=== PATIENT | male | born 1965 | race Caucasian/White ===

== ENCOUNTER 2016-07-25 08:34 | Inpatient (IN) | payer OTHER ==
--- NOTE | 2016-07-12 14:45 | PAT Medication Instructions ---
Service Date Jul 12, 2016. Current Home Medication List Diclofenac (Voltaren), 75 MG PO BID Iyajxjukqrq-Ddukskxcczk-Lim C- (Glucosamine Chondroitin), 1 TAB PO BID Multivitamin (Multivitamin), 1 TAB PO QAM Medication Instructions For Your Scheduled Surgery - Check with surgeon for instructions: Diclofenac (Voltaren), 75 MG PO BID - Hold the following medications starting 07/12/16: Sewlyupmriw-Xtlbhcsxhpv-Bxk C- (Glucosamine Chondroitin), 1 TAB PO BID - Hold the following medications the morning of surgery: Multivitamin (Multivitamin), 1 TAB PO QAM If you have any questions please call us at [phone] (Sara Gtz PA-C) or [phone] or [phone]
--- NOTE | 2016-07-12 15:18 | DIAGNOSTIC IMAGING REPORT ---
CHEST 2 VIEWS ROUTINE CLINICAL HISTORY: Preoperative chest COMPARISON STUDY: No previous studies for comparison. FINDINGS: The cardiac and mediastinal contours are normal. There is no evidence of focal pulmonary consolidation. There is no evidence of failure. No pleural effusions are visualized.[ IMPRESSION: No active disease in the chest. Electronically signed by: Alessandro Anton M.D. 07/12/2016 3:16 PM
[2016-07-12 16:39] LABS: BASO % 0.2 %; BASO ABS # 0.02 K/uL (0-0.2); COMPLETE YES; HEMATOCRIT 45.7 % (42-52); IG% 0.5 %; LYMPH % 29.2 %; LYMPH ABS # 2.83 K/uL (1.2-3.4); MEAN CORPUSCULAR HEMOGLOBIN 33.5 pg (25-34); MEAN CORPUSCULAR HGB CONC 35.7 g/dl (32-36); NEUT % 59.1 %; PLATELET COUNT 239 K/uL (130-400); RED BLOOD COUNT 4.86 M/uL (4.7-6.1); WHITE BLOOD COUNT 9.69 K/uL (4.8-10.8)
[2016-07-12 16:40] LABS: URINE APPEARANCE CLEAR (CLEAR); URINE BILIRUBIN NEG (NEG); URINE COLOR YELLOW; URINE NITRITE NEG (NEG); URINE PH 5.5 (4.5-7.5); URINE SPECIFIC GRAVITY 1.023 (1.000-1.030); UROBILINOGEN NEG (NEG); ZZUR CULT IF INDIC CLEAN CATCH NO
[2016-07-12 16:45] LABS: MANUAL MICROSCOPIC REQUIRED? NO; REVIEW REQ? NO
[2016-07-12 16:51] LABS: PROTHROMBIN TIME (PATIENT) 10.4 SECONDS (9.0-12.0)
[2016-07-12 16:59] LABS: BUN/CREATININE RATIO 17.3 (10-20); CALCIUM 9.5 mg/dl (8.5-10.1); POTASSIUM 4.1 mmol/L (3.5-5.1)
[~2016-07-25] VITALS: Ht 172.7 cm; Wt 90.9 kg
[2016-07-25] VITALS (9 sets, daily range): BP systolic 107–133; BP diastolic 54–90; PULSE 84–108; TEMP 36.5–36.8; O2SAT 92–98; Ht 172.7 cm; Wt 90.9 kg
[~2016-07-25 08:34] MED LIST: ACETAMINOPHEN 500 MG TAB PO SCH; ATROPINE SULFATE 0.1 MG/ML 5ML SYR IV PRN; BUPIVACAINE 0.5 % 5 MG/1 ML PF 10ML VIAL ONE; CEFAZOLIN 2000 MG/60 ML D5W 60 ML IV SCH; CeleBREX 200 MG CAP PO SCH; DEXAMETHASONE 4 MG TAB PO SCH; DICL-201 PO; EpHEDrine SULFATE INJ 50 MG/ML AMP IV PRN; FAMOTIDINE 20 MG TAB PO SCH; FENTANYL CITRATE INJ 50 MCG/1 ML 2 ML VIAL IV PRN; GABAPENTIN 300 MG CAP PO SCH; GLUCTAB7 PO; LACTATED RINGER'S 1000ML IV SCH; LACTATED RINGER'S 500 ML IV SCH; METOCLOPRAMIDE HCL 10 MG TAB PO SCH; MULT-506 PO; ONDANSETRON INJ 2 MG/ML 2 ML VIAL IV PRN; OXYCODONE HCL 10 MG TABCR (OXYCONTIN) PO SCH; POLYMYXIN B SULFATE 100,000 UNITS in NSS 100ML IR SCH; ROPIVACAINE 5MG/ML 30 ML 150 MG, BUPIVACAINE/EPINEPHR 0.5% MPF 30 ML, KETOROLAC TROMETH... INFIL SCH; VANCOMYCIN INJ 400 MG in NSS 100ML IR SCH
[2016-07-25] MEDS ORDERED: MIDAZOLAM HCL 1 MG/ML 2ML VIAL ONE ×2 (09:46)
[2016-07-25] MEDS ORDERED: FENTANYL CITRATE INJ 50 MCG/1 ML 2 ML VIAL ONE (09:46)
--- NOTE | 2016-07-25 10:10 | History and Physical ---
History & Physical Date Jul 25, 2016. Chief Complaint R HIP PAIN History of Present Illness The patient is a 51 year old male with complaints of 2 YEAR HX OF R HIP PAIN. PAIN IS IN GROIN AGGRAVATING BY WALKING STANDING AND ADLS. PAIN 8/10 HAS TRIED INJECTIONS W SHORT TERM RELIEF.XRAY CW MODERATE TO ADVANCED OA OF HIP. Additional History Hepatic Disease: No Endocrine Disorder: No Kidney Disease: No Hypertension: No Heart Disease: No Bleeding Tendencies: No Infectious Diseases: No Allergies Coded Allergies: No Known Allergies (Unverified , 07/25/16) Home Medications Scheduled Diclofenac (Voltaren), 75 MG PO BID Tucpavcajcp-Kekrrcktjzy-Nxb C- (Glucosamine Chondroitin), 1 TAB PO BID Multivitamin (Multivitamin), 1 TAB PO QAM Physical Examination Skin: warm/dry, no rash Eyes: normal inspection, EOMI, sclerae normal ENT: normal ENT inspection, pharynx normal Head: normocephalic, atraumatic Neck: supple, no adenopathy, trachea midline Respiratory/Chest: lungs clear, normal breath sounds, no respiratory distress Cardiovascular: regular rate, rhythm, no edema, no murmur Abdomen / GI: normal bowel sounds, non tender Back: normal inspection, + pertinent finding (GROIN PAIN W ROM FLEX 80 IR 10 REPRODUCE PAIN LEG LENGTH EQUAL ) Extremities: normal inspection, normal range of motion Neurologic/Psych: no motor/sensory deficits, alert, normal reflexes, oriented x 3 Diagnosis DJD R HIP ASA Classification: ASA Class I Plan of Treatment R MARLIN
[2016-07-25] MEDS ORDERED: PROPOFOL IV EMULSION 10 MG/ML 20 ML VIAL IV ONE ×2 (10:13→12:13)
[2016-07-25] MEDS: TRANEXAMIC ACID INJ 1,000 MG in SODIUM CHLORIDE 0.9% 100ML 100 ML IV SCH ×2 (10:15→15:36)
[2016-07-25] MEDS ORDERED: ORTHO JOINT ANESTHETIC ONE (10:41)
[2016-07-25] MEDS ORDERED: PHENYLEPHRINE 100MCG/ML 5ML SYR ONE (12:13)
[2016-07-25] MEDS ORDERED: POVIDONE-IODINE OP SOLN 30 ML BTL TOP ONE (13:01)
[2016-07-25] MEDS ORDERED: BACITRACIN 50000 UNIT VIAL IR ONE (13:01)
--- NOTE | 2016-07-25 13:08 | [facility] Post Operative Brief Note ---
Immediate Operative Summary Operative Date Jul 25, 2016. Pre-Operative Diagnosis Degenerative joint disease right hip Post-Operative Diagnosis same as preop severe avn Procedure(s) Performed Total Hip Arthroplasty Direct Anterior Approach, Right, Uncemented Surgeon Dr. Santo Hallman Four Slide Operator Surgeon(s) ROSANA Parrish Estimated Blood Loss 125ML Findings severe avn hip Specimens A: Right femoral head Complication(s) None Disposition Recovery Room / PACU
[2016-07-25] MEDS ORDERED: METOCLOPRAMIDE HCL INJ 5 MG/ML 2 ML VIAL IV PRN (13:15)
[2016-07-25] MEDS ORDERED: ONDANSETRON INJ 2 MG/ML 2 ML VIAL IV PRN (13:15)
[2016-07-25] MEDS ORDERED: DiphenhydrAMINE HCL 50 MG/ML VIAL IV PRN (13:15)
[2016-07-25] MEDS ORDERED: ALUMINUM/MAGNESIUM/SIMETH (MAALOX MAX) 30 ML UDC PO PRN (13:15)
[2016-07-25] MEDS ORDERED: MAGNESIUM HYDROXIDE SUSP 30 ML UDC PO PRN (13:15)
[2016-07-25] MEDS ORDERED: BISACODYL 10 MG SUPP PR PRN (13:15)
[2016-07-25] MEDS ORDERED: MoRPHine SULFATE 2 MG/ML CARP IV PRN (13:15)
[2016-07-25] MEDS ORDERED: ZOLPIDEM TARTRATE 5 MG TAB PO PRN (13:15)
[2016-07-25] MEDS ORDERED: SOD PHOSPHATE/SOD BIPHOSPHATE ENEMA 132 ML BTL PR PRN (13:15)
[2016-07-25] MEDS ORDERED: TRAMADOL HCL 50 MG TAB PO PRN (13:15)
[2016-07-25] MEDS ORDERED: EpHEDrine SULFATE 50MG/5ML SYR ONE (13:16)
--- NOTE | 2016-07-25 13:23 | DIAGNOSTIC IMAGING REPORT ---
FLUOROSCOPIC INTRAOPERATIVE IMAGES OF THE RIGHT HIP CLINICAL HISTORY: Right hip arthroplasty. COMPARISON STUDY: No previous studies for comparison. FLUOROSCOPY TIME: 14.7 seconds. FINDINGS: 1 fluoroscopic image of the right hip was obtained and demonstrates anatomic alignment of the right hip arthroplasty. There is an acetabular screw. The distal aspect of the femoral stem was not imaged on this exam. IMPRESSION: Expected findings during right hip arthroplasty. Electronically signed by: Heri Gonzales M.D. 07/25/2016 1:21 PM
--- NOTE | 2016-07-25 14:18 | Anesthesiology Progress Note ---
Anesthesia Post Op Note Date & Time Jul 25, 2016 at 14:17 Vital Signs Pain Intensity: 6 Vital Signs Past 12 Hours Date Time Temp Pulse Resp B/P Pulse Ox O2 Delivery O2 Flow Rate FiO2 07/25/16 14:15 36.4 85 16 105/74 98 Nasal Cannula 2 07/25/16 14:05 36.4 85 16 100/76 98 Nasal Cannula 2 07/25/16 13:55 81 16 116/73 99 Nasal Cannula 2 07/25/16 13:45 78 16 111/73 98 Nasal Cannula 2 07/25/16 13:38 36.6 88 16 114/69 98 Nasal Cannula 2 07/25/16 09:09 97 Room Air Notes Mental Status: alert / awake / arousable, participated in evaluation Pt Amnestic to Procedure: Yes Nausea / Vomiting: adequately controlled Pain: adequately controlled Airway Patency, RR, SpO2: stable & adequate BP & HR: stable & adequate Hydration State: stable & adequate Neuraxial Anesthesia: was administered, sensory block is resolving Anesthetic Complications: no major complications apparent
--- NOTE | 2016-07-25 14:23 | DIAGNOSTIC IMAGING REPORT ---
RIGHT PELVIS/UNILATERAL HIP 1 VIEW CLINICAL HISTORY: Right hip arthritis. Arthroplasty. COMPARISON: Intraoperative fluoroscopic image performed earlier today. FINDINGS: Alignment of the total right hip arthroplasty is anatomic. There is an acetabular screw and surgical drain. There is no fracture or unexpected radiopaque foreign body. IMPRESSION: Expected findings following total right hip arthroplasty. Electronically signed by: Heri Gonzales M.D. 07/25/2016 2:21 PM
[2016-07-25] MEDS: KETOROLAC TROMETHAMINE 30 MG/ML VIAL IV. SCH ×2 (15:40→22:32)
[2016-07-25] MEDS: D5W AND 1/2NSS + 20MEQ KCL 1,000 ML IV SCH (15:40)
[2016-07-25] MEDS: ACETAMINOPHEN 500 MG TAB PO SCH ×2 (15:41→22:31)
[2016-07-25] MEDS: OXYCODONE HCL IR 5 MG TAB (IMMEDIATE RELEASE) PO PRN ×2 (17:48→23:56)
[2016-07-25] MEDS ORDERED: TRANEXAMIC ACID INJ 1,000 MG in SODIUM CHLORIDE 0.9% 100ML 100 ML IV ONE (20:00)
[2016-07-25] MEDS: CEFAZOLIN IV 2,000 MG in DEXTROSE 5% 50ML 50 ML IV SCH (20:28)
[2016-07-25] MEDS: ASPIRIN 81 MG ECTAB PO SCH (20:29)
[2016-07-25] MEDS ORDERED: SENNA 8.6 MG TAB PO SCH (21:00)
[2016-07-26] MEDS: D5W AND 1/2NSS + 20MEQ KCL 1,000 ML IV SCH ×2 (01:47→11:15)
[2016-07-26 03:16] VITALS: BP 112/68; PULSE 69; TEMP 36.6; O2SAT 96
[2016-07-26] MEDS: KETOROLAC TROMETHAMINE 30 MG/ML VIAL IV. SCH ×2 (03:55→09:26)
[2016-07-26] MEDS: CEFAZOLIN IV 2,000 MG in DEXTROSE 5% 50ML 50 ML IV SCH (03:59)
[2016-07-26] MEDS: ACETAMINOPHEN 500 MG TAB PO SCH (06:33)
[2016-07-26 06:57] LABS: BASO % 0.1 %; BASO ABS # 0.01 K/uL (0-0.2); COMPLETE YES; HEMATOCRIT 38.7 % (42-52); IG% 0.4 %; LYMPH % 6.5 %; LYMPH ABS # 0.83 K/uL (1.2-3.4); MEAN CORPUSCULAR HEMOGLOBIN 32.5 pg (25-34); MEAN CORPUSCULAR HGB CONC 34.9 g/dl (32-36); MEAN PLATELET VOLUME 10.4 fL (7.4-10.4); MONO % 6.6 %; NEUT % 86.4 %; PLATELET COUNT 219 K/uL (130-400); RED BLOOD COUNT 4.16 M/uL (4.7-6.1); WHITE BLOOD COUNT 12.85 K/uL (4.8-10.8)
[2016-07-26 07:30] VITALS: BP 125/80; PULSE 73; TEMP 36.6; O2SAT 98
[2016-07-26 07:32] LABS: CALCIUM 8.6 mg/dl (8.5-10.1); CREATININE 1.1 mg/dl (0.60-1.40); POTASSIUM 3.9 mmol/L (3.5-5.1)
--- NOTE | 2016-07-26 08:10 | Anesthesiology Progress Note ---
Anesthesia Post Op Note Date & Time Jul 26, 2016 at 08:09 Vital Signs Vital Signs Past 12 Hours Date Time Temp Pulse Resp B/P Pulse Ox O2 Delivery O2 Flow Rate FiO2 07/26/16 07:30 36.6 73 16 125/80 98 Room Air 07/26/16 03:16 36.6 69 18 112/68 96 Room Air 07/26/16 00:00 Room Air 07/25/16 23:28 36.6 89 20 111/68 95 Room Air 07/25/16 22:48 84 Notes Mental Status: alert / awake / arousable, participated in evaluation Pt Amnestic to Procedure: Yes Nausea / Vomiting: adequately controlled Pain: adequately controlled Airway Patency, RR, SpO2: stable & adequate BP & HR: stable & adequate Hydration State: stable & adequate Neuraxial Anesthesia: sensory block resolved Anesthetic Complications: no major complications apparent
--- NOTE | 2016-07-26 08:19 | Orthopedic Progress Note ---
Orthopedic Progress Note Date of Service Jul 26, 2016. Subjective Post OP Day: 1 Reports: feeling well, Denies: SOB, calf pain, chest pain, light headedness, nausea / vomiting Objective calves soft nontender, N/V intact, dressing C/D/I, A&O x3, toes mobile, hemovac drainage (55/25CC PER SHIFT) Date Time Temp Pulse Resp B/P Pulse Ox O2 Delivery O2 Flow Rate FiO2 07/26/16 07:30 36.6 73 16 125/80 98 Room Air 07/26/16 03:16 36.6 69 18 112/68 96 Room Air 07/26/16 00:00 Room Air 07/25/16 23:28 36.6 89 20 111/68 95 Room Air 07/25/16 22:48 84 07/25/16 19:45 36.6 108 18 133/90 92 Room Air 07/25/16 17:37 36.5 94 18 107/74 96 Nasal Cannula 2.0 07/25/16 16:40 36.8 92 17 111/74 96 Nasal Cannula 2.0 07/25/16 15:40 36.6 100 18 110/54 97 Nasal Cannula 2.0 07/25/16 15:11 36.6 100 18 120/86 97 Nasal Cannula 2.0 07/25/16 14:40 98 Nasal Cannula 2.0 07/25/16 14:40 36.8 87 16 114/75 98 Nasal Cannula 2.0 07/25/16 14:40 98 Nasal Cannula 2.0 07/25/16 14:25 85 16 110/81 98 Nasal Cannula 2 07/25/16 14:15 36.4 85 16 105/74 98 Nasal Cannula 2 07/25/16 14:05 36.4 85 16 100/76 98 Nasal Cannula 2 07/25/16 13:55 81 16 116/73 99 Nasal Cannula 2 07/25/16 13:45 78 16 111/73 98 Nasal Cannula 2 07/25/16 13:38 36.6 88 16 114/69 98 Nasal Cannula 2 07/25/16 09:09 97 Room Air Laboratory Results 24 Hours: Test 07/26/16 06:05 White Blood Count 12.85 K/uL Red Blood Count 4.16 M/uL Hemoglobin 13.5 g/dL Hematocrit 38.7 % Mean Corpuscular Volume 93.0 fL Mean Corpuscular Hemoglobin 32.5 pg Mean Corpuscular Hemoglobin Concent 34.9 g/dl Platelet Count 219 K/uL Mean Platelet Volume 10.4 fL Neutrophils (%) (Auto) 86.4 % Lymphocytes (%) (Auto) 6.5 % Monocytes (%) (Auto) 6.6 % Eosinophils (%) (Auto) 0.0 % Basophils (%) (Auto) 0.1 % Neutrophils # (Auto) 11.11 K/uL Lymphocytes # (Auto) 0.83 K/uL Monocytes # (Auto) 0.85 K/uL Eosinophils # (Auto) 0.00 K/uL Basophils # (Auto) 0.01 K/uL Assessment & Plan Assessment: POD#1 SP RIGHT MARLIN, DIRECT ANTERIOR Inhouse Planning Pain Management: Celebrex, PO Tylenol, Oxy IR DVT Prophylaxis: TEDs, SCDs, ASA Discharge Planning Discharge Planning: home with home health ([place] [facility].)
--- NOTE | 2016-07-26 08:20 | Discharge Instructions ---
Discharge Instructions Admission Reason for Admission: Right Hip Arthritis Discharge Discharge Diagnosis / Problem: SP RIGHT MARLIN Discharge Goals Goal(s): Decrease discomfort, Improve function, Increase independence Activity Recommendations Activity Limitations: per Instructions/Follow-up section Lifting Limitations: none . Instructions / Follow-Up Instructions / Follow-Up ACTIVITY RECOMMENDATIONS: SELF CARE INSTRUCTIONS AFTER TOTAL HIP REPLACEMENT : Direct Anterior Approach Until the incision and soft tissues around your hip have healed, there is a possibility that the hip prosthesis could dislocate. A. Hip flexion ( Up & Down out of chair or steps ) may be difficult. This is normal. B. Numbness in front of the thigh is also normal for a few weeks. C. Use hand rails when walking on stairs. D. Wear low heeled shoes with non-slip soles. E. Be sure that your floors are free of things that could trip you - throw rugs , electrical cords, small objects. Avoid wet and waxed floors, especially with crutches and canes. F. Try to walk several times a day with rest periods between. G. Continue with all the exercises taught to you in the hospital. Again, make walking a part of your daily routine. SPECIAL CARE INSTRUCTIONS: VERY IMPORTANT TO READ AND REVIEW A. You may still be at risk for phlebitis and blood clots. 1. Wear surgical stockings (PRAVIN hose) for 2 weeks after surgery to improve circulation and reduce swelling. 2. Take Aspirin 81mg twice daily for 4 weeks or as directed by your doctor. This is your blood thinner. 3. High risk patients may be prescribed a stronger blood thinner if necessary. 4. If you are on Coumadin normally, your family doctor/sample collector should monitor your blood work. Expect a phone call the day of or the day after bloodwork is drawn to adjust your dosage. B. You must take antibiotics before having dental work, bladder, bowel and other surgery. Your doctor will provide you with a permanent card to carry describing precautions. C. Call [facility] if you have a fever, redness or swelling around the incision, cloudy drainage from incision, or sudden increase in pain in your hip, not relieved by your regular pain medication. D. Please call the office at if you have any concerns or questions about your operation or recovery. * YOU MAY SHOWER, NO TUB BATHS UNTIL CLEARED BY YOUR DOCTOR. - Keep an extra close eye on the top portion of your incision. Be sure to keep clean & dry. * WEAR PRAVIN HOSE 20 HOURS PER DAY FOR 2 WEEKS. * YOU MAY PROGRESS FROM A WALKER, TO A CANE, TO INDEPENDENT AT YOUR OWN PACE. * MOST PATIENTS WILL HAVE HOME NURSING FOR THERAPY. IF YOU DECIDE TO DO OUTPATIENT PHYSICAL THERAPY, PLEASE SCHEDULE THIS 3 TIMES PER WEEK. * DERMABOND Prineo- This is a mesh tape dressing that is covered with glue. It should remain in place until the incision is properly healed, usually 10-14 days. This dressing is designed to naturally slough off. You may trim the excess mesh tape as it peels off. Incision may be briefly wet in a shower. Dry immediately by blotting with a clean, dry towel. Do not bath or swim until instructed by your doctor. Do not scratch, rub, or pick at the dressing. Do not apply any topical ointments or lotions until dressing is completely removed and/or instructed by your doctor. There may be a small piece of suture material at one end of your incision. Do not pull or trim this. If it is bothersome or catching on clothing, you may cover it with a band-aid. FOLLOW UP VISIT: If appointment is not already scheduled: Please call [facility] to make a follow-up appointment for 2 weeks after your surgery at . Current Hospital Diet Patient's current hospital diet: Regular Diet Discharge Diet Recommended Diet: Regular Diet Procedures Procedures Performed: Total Hip Arthroplasty Direct Anterior Approach, Right, Uncemented Pending Studies Studies pending at discharge: no Medical Emergencies . Who to Call and When: Medical Emergencies: If at any time you feel your situation is an emergency, please call 911 immediately. . Non-Emergent Contact Non-Emergency issues call your: Primary Care Provider . "Provider Documentation" section prepared by Jeannine Call. VTE Core Measure Inpt VTE Proph given/why not?: Other Anticoagulation, T.E.D. Stockings, SCD's
[2016-07-26] MEDS ORDERED: ACET-1138 PO (08:27)
[2016-07-26] MEDS ORDERED: SNK PO (08:27)
[2016-07-26] MEDS ORDERED: RXC5 PO (08:27)
[2016-07-26] MEDS ORDERED: CLB200 PO (08:27)
[2016-07-26] MEDS ORDERED: ONDA8TAB6 PO (08:27)
[2016-07-26] MEDS ORDERED: ASPEC81 PO (08:27)
[2016-07-26] MEDS ORDERED: PANTOprazole SOD 40 MG TAB PO SCH (09:00)
[2016-07-26] MEDS ORDERED: MULTIVITAMIN TAB PO SCH (09:00)
[2016-07-26] MEDS: ASPIRIN 81 MG ECTAB PO SCH (09:26)
--- NOTE | 2016-07-26 11:01 | DISCHARGE SUMMARY ---
DISCHARGE DIAGNOSIS: Degenerative joint disease, right hip. CONSULTS: None. COMPLICATIONS: None. PROCEDURES: Right total hip arthroplasty performed by Dr. Javier Hallman on 07/25/2016. BRIEF HISTORY: As dictated in the history and physical. HOSPITAL SUMMARY: The patient was admitted on the above date and had the above-noted surgery performed which he tolerated well. On the first postoperative day, patient was feeling well and had no complaints. Calves were soft, nontender, neurovascularly intact. Dressings clean, dry and intact. Toes were mobile and vital signs were stable. He was afebrile. Hemoglobin was 13.5 and he had been started on physical therapy protocol and continued on DVT prophylaxis and pain management. He was progressing well with physical therapy and remaining stable and it was felt he could be discharged to home on 07/26/2016. For further review, please see chart. LAB AND X-RAY DATA: As per chart. DISCHARGE INSTRUCTIONS: The patient was discharged to home in satisfactory condition on 07/26/2016. DIET: Regular. ACTIVITY: Follow MARLIN direct anterior hip replacement instructions and special care instructions as noted. Follow up with Dr. Hallman in 2 weeks. The patient to call for appointment if one has not been made for you. DISCHARGE MEDICATIONS: Acetaminophen 1000 mg p.o. q. 8 hours, aspirin 81 mg p.o. b.i.d., Celebrex 200 mg p.o. b.i.d., Zofran 8 mg p.o. q. 8 hours p.r.n., oxycodone 5-10 mg p.o. q. 4 hours p.r.n., senna 17.2 mg p.o. at bedtime. Resume glucosamine chondroitin 1 tab p.o. b.i.d., multivitamin 1 tab p.o. q.a.m. and stop taking Voltaren.
[2016-07-26 11:14] VITALS: BP 108/65; PULSE 77; TEMP 36.4; O2SAT 98
[2016-07-26 12:39] VITALS: BP 108/65; PULSE 77; TEMP 36.4; O2SAT 98
[2016-07-26] MEDS: OXYCODONE HCL IR 5 MG TAB (IMMEDIATE RELEASE) PO PRN (13:45)
--- NOTE | 2016-07-27 09:26 | OPERATIVE REPORT ---
DATE OF OPERATION: 07/25/2016 PREOPERATIVE DIAGNOSIS: Degenerative arthritis, right hip. POSTOPERATIVE DIAGNOSIS: Same. PROCEDURE: Right total hip replacement. SURGEON: Dr. Hallman. EGG SORTER: Tam Johnston PA-C. ANESTHESIA: Spinal. BLOOD LOSS: 125 mL. REPLACEMENT FLUIDS: 1800 mL of crystalloid. DRAINS: Hemovacs x1. CULTURES: None. COMPLICATIONS: None. COMPONENTS USED: [employer] Polar hip system: Acetabulum size 52, femur size 2 lateralized femoral head 0, neck length 36 mm. NOTE: Tam Johnston PA-C was present and assisted throughout due to the complicated nature of this case. He helped with preparation and setup, first assisted throughout and personally closed the fascial, subcutaneous and skin layers and applied the postoperative dressing. DESCRIPTION: Following satisfactory spinal the patient was supine. The left leg was placed in the well leg rajput. The right leg in the traction device, the right leg was then prepared with ChloraPrep and draped sterilely. Following a surgical time out an anterior approach in the interval between the sartorius and tensor muscles was completed. Circumflex femoral vessels were identified and ligated. An anterior capsulotomy was performed exposing a severely arthritic femoral neck and head. The femoral neck and head were trimmed and removed. A self-retaining acetabular retractor was placed. Acetabular preparation and reaming was completed and a 52 shell was impacted into an anatomic position and secured with a dome screw. After irrigation, the cross-linked polyethylene liner was placed. The femur was placed into position of external rotation, extension and adduction. Femoral canal was prepared up to the size 2 and a trial reduction with a 0 neck length head using fluoroscopy showed scientology of leg lengths using anatomic landmarks and good fit and fill of the proximal canal with good position of the stem. The trial component was removed. The capsule and the muscle was prepared with local anesthetic and after irrigation, the implant was placed. The hip was reduced with fluoroscopy confirming similar position. A Betadine soak was performed. After 5 minutes, the Betadine was irrigated. The capsule was closed with 1-0 Vicryl interrupted. Following irrigation, a drain was placed. The fascia was closed with a running suture of 1 Vicryl. The subcutaneous tissues with 2-0 Vicryl and the skin with a running subcuticular stitch. Dermabond and a dry dressing were applied. The patient was returned to his bed in stable condition. I attest to the content of the Intraoperative Record and any orders documented therein. Any exceptio ns are noted below.
[2016-07-27] MEDS ORDERED: CeleBREX 200 MG CAP PO SCH (21:00)
== END 2016-07-26 14:16 | disposition home health service (06) | DRG 470 ==
LOC: ENRESERVDT → ENRESERVTM → C.ACU 08:34 → C.3E 13:11
PROVIDERS: ADMIT Orthopaedic Surgery; ATTEND Orthopaedic Surgery
PROC: 0SR904A Replacement of Right Hip Joint with Ceramic on Polyethylene Synthetic Substitute, Uncemented, Open Approach (ICD-10-PCS; principal; 2016-07-25 11:00)
DX: M16.11 Unilateral primary osteoarthritis, right hip (principal); R06.83 Snoring; E66.9 Obesity, unspecified; F17.290 Nicotine dependence, other tobacco product, uncomplicated; Z68.30 Body mass index [BMI] 30.0-30.9, adult; R10.30 Lower abdominal pain, unspecified; Z79.1 Long term (current) use of non-steroidal anti-inflammatories (NSAID); Z79.899 Other long term (current) drug therapy